=== PATIENT | male | born 1980 ===

== ENCOUNTER 2018-12-16 10:21 | Inpatient (IN) | payer MEDICARE, MEDICAID | END 2018-12-22 12:14 | disposition home or self-care (01) | DRG 885 | LOC: C.ER 10:21 → C.9E 14:22 → C.6T 16:57 → C.9E 16:57 → C.5E 20:49 | PROC: GZ3ZZZZ Medication Management (ICD-10-PCS; principal; 2018-12-16) | PROC: HZ89ZZZ Medication Management for Substance Abuse Treatment, Other Replacement Medication (ICD-10-PCS; 2018-12-16) | PROC: HZ80ZZZ Medication Management for Substance Abuse Treatment, Nicotine Replacement (ICD-10-PCS; 2018-12-16) | PROC: GZHZZZZ Group Psychotherapy (ICD-10-PCS; 2018-12-16) | PROC: GZ56ZZZ Individual Psychotherapy, Supportive (ICD-10-PCS; 2018-12-16) | DX: F31.4 Bipolar disorder, current episode depressed, severe, without psychotic features (principal); F14.20 Cocaine dependence, uncomplicated; R45.851 Suicidal ideations; F10.20 Alcohol dependence, uncomplicated; F41.0 Panic disorder [episodic paroxysmal anxiety]; F17.210 Nicotine dependence, cigarettes, uncomplicated; R07.89 Other chest pain; I10 Essential (primary) hypertension; I25.10 Atherosclerotic heart disease of native coronary artery without angina pectoris; E78.5 Hyperlipidemia, unspecified; G47.00 Insomnia, unspecified; E78.00 Pure hypercholesterolemia, unspecified; Z62.810 Personal history of physical and sexual abuse in childhood; Z91.5 Personal history of self-harm; Z87.11 Personal history of peptic ulcer disease; Z95.5 Presence of coronary angioplasty implant and graft ==